=== PATIENT | female | born 1940 | race Caucasian/White ===

== ENCOUNTER 2019-02-26 20:53 | Inpatient (IN) ==
[2019-02-26] MEDS ORDERED: Morphine Sulfate 2 MG/ML SYRINGE IVP ONE (21:57)
[2019-02-26 22:49] LABS: Basophils % 0.5 %; Eosinophils # 0.3 K/mcL (0.0-0.6); Hematocrit 40.9 % (35.3-44.9); Hemoglobin 13.7 g/dL (11.5-15.4); Immature Granulocytes % 0.4 % (0-4); Lymphocytes # 2.1 K/mcL (0.6-4.6); Lymphocytes % 25.1 %; Mean Corpuscular HGB Conc 33.5 g/dL (31.6-35.5); Mean Corpuscular Hemoglobin 30.4 pg (28.0-33.3); Mean Corpuscular Volume 90.9 fL (83.0-100.0); Mean Platelet Volume 9.7 fL (9.4-12.4); Monocytes # 0.3 K/mcL (0.0-1.3); Monocytes % 3.8 %; Neutrophils # 5.4 K/mcL (1.6-8.9); Platelet Count 163 K/mcL (140-400); Segmented Neutrophils % 66.2 %; White Blood Count 8.2 K/mcL (4.3-11.1)
[2019-02-26] MEDS ORDERED: Ondansetron 4 MG/2 ML VIAL IVP ONE (22:49)
[2019-02-26 22:58] LABS: INR 1.1; Prothrombin Time 12.8 Seconds (9.4-12.1)
[2019-02-26 23:12] LABS: Alanine Aminotransferase 11 Units/L (7-52); Albumin/Globulin Ratio 1.2 (1.1-2.2); Alkaline Phosphatase 83 Units/L (34-104); Aspartate Amino Transferase 19 Units/L (13-39); BUN/Creatinine Ratio 16 (6-26); Bilirubin,Total 0.8 mg/dL (0.3-1.0); Blood Urea Nitrogen 11 mg/dL (8-23); Calcium 9.7 mg/dL (8.6-10.3); Carbon Dioxide 27 mEq/L (23-29); Chloride 94 mEq/L (98-107); Globulin 3.4 g/dL (2.4-3.5); Glucose 142 mg/dL (70-105); Osmolality,Calculated 270 (280-300); Potassium 4.2 mEq/L (3.5-5.1); Sodium 129 mEq/L (136-145); Total Protein 7.4 g/dL (6.4-8.9); eGFR For African Americans > 60 (> 60); eGFR For Non-African Americans > 60 (> 60)
[2019-02-27] MEDS ORDERED: 0.9 % Sodium Chloride 1,000 ML IV ONE (00:18)
[2019-02-27] MEDS ORDERED: Naloxone 0.4 MG/ML INJ IVP PRN ×2 (01:21→18:59)
[2019-02-27] MEDS ORDERED: Ondansetron 4 MG/2 ML VIAL IVP PRN ×2 (01:21→18:59)
[2019-02-27] MEDS ORDERED: Nitroglycerin 0.4 MG TAB.SUBL SL PRN ×2 (01:28→18:59)
[2019-02-27] MEDS ORDERED: 0.9 % Sodium Chloride 1,000 ML IVC SCH (01:30)
[2019-02-27] MEDS ORDERED: Melatonin 3 MG TABLET PO ONE (02:56)
[2019-02-27] MEDS: Albuterol 2.5 MG/3 ML NEBULIZER IH SCH ×6 (04:56→23:18)
[2019-02-27 05:58] LABS: Hematocrit 36.7 % (35.3-44.9); Hemoglobin 12.5 g/dL (11.5-15.4); Mean Corpuscular HGB Conc 34.1 g/dL (31.6-35.5); Mean Corpuscular Hemoglobin 30.6 pg (28.0-33.3); Mean Corpuscular Volume 89.7 fL (83.0-100.0); Mean Platelet Volume 10.2 fL (9.4-12.4); Platelet Count 163 K/mcL (140-400); Red Blood Count 4.09 M/mcL (3.82-4.97); Red Cell Distribution Width 12.1 % (11.5-14.5); White Blood Count 8.6 K/mcL (4.3-11.1)
[2019-02-27 06:25] LABS: BUN/Creatinine Ratio 20 (6-26); Blood Urea Nitrogen 12 mg/dL (8-23); Calcium 9.3 mg/dL (8.6-10.3); Carbon Dioxide 24 mEq/L (23-29); Chloride 95 mEq/L (98-107); Glucose 195 mg/dL (70-105); Osmolality,Calculated 275 (280-300); Potassium 4.1 mEq/L (3.5-5.1); Sodium 130 mEq/L (136-145); eGFR For African Americans > 60 (> 60); eGFR For Non-African Americans > 60 (> 60)
[2019-02-27] MEDS ORDERED: D5% in Water 1,000 ML IVC PRN ×2 (07:33→18:59)
[2019-02-27] MEDS ORDERED: Dextrose Gel 15 GM/37.5 ML TUBE PO PRN ×4 (07:33→18:59)
[2019-02-27] MEDS ORDERED: *HR* Dextrose 50 % in Water (Syg) 50 ML SYRINGE IVP PRN ×2 (07:33→18:59)
[2019-02-27] MEDS ORDERED: Nystatin Cream 15 GM TUBE TP SCH (09:00)
[2019-02-27] MEDS: Insulin LISPRO 300 UNITS/3 ML VIAL SQ SCH ×2 (13:12→20:07)
[2019-02-27] MEDS ORDERED: *HR* HYDROcodone/Acet 5/325 mg TABLET PO PRN ×2 (15:01→18:59)
[2019-02-27] MEDS ORDERED: *HR* FentaNYL (PF) 100 MCG/2 ML VIAL ONE ×2 (15:35→16:54)
[2019-02-27] MEDS ORDERED: *HR* Propofol 200 MG/20 ML VIAL IVP ONE (15:36)
[2019-02-27] MEDS ORDERED: Lidocaine -MPF 2% 2 ML VIAL ONE (15:37)
[2019-02-27] MEDS ORDERED: *HR* Succinylcholine 200 MG/10 ML VIAL IVP ONE (15:38)
[2019-02-27] MEDS ORDERED: Lidocaine HCL 4 ML Topical Solution (Laryng-O-Jet Kit Sterile Pak) TP ONE (15:38)
[2019-02-27] MEDS ORDERED: Clindamycin 900 MG/50 ML 900 MG/50 ML IV.SOLN IVPB ONE (15:43)
[2019-02-27] MEDS ORDERED: *HR* Promethazine 25 MG/ML VIAL IVP PRN ×2 (15:46→18:59)
[2019-02-27] MEDS ORDERED: Acetaminophen IV 1,000 MG/100 ML INFUS..BTL IVPB ONE ×2 (15:46→18:59)
[2019-02-27] MEDS ORDERED: *HR* FentaNYL (PF) 100 MCG/2 ML VIAL IVP PRN ×2 (15:46→18:59)
[2019-02-27] MEDS ORDERED: *HR* Meperidine 25 MG/ML SYRINGE IVP PRN ×2 (15:46→18:59)
[2019-02-27] MEDS ORDERED: *HR* OxyCODONE Immed Rel 5 MG TABLET PO PRN (15:46)
[2019-02-27] MEDS ORDERED: Acetaminophen IV 1,000 MG/100 ML INFUS..BTL ONE (16:17)
[2019-02-27] MEDS ORDERED: *HR* PHENYLEPHRINE 1,000 MCG/10 ML SYRINGE IVP ONE (16:40)
[2019-02-27] MEDS ORDERED: Dexamethasone 4 MG/ML VIAL ONE (16:40)
[2019-02-27] MEDS ORDERED: Ondansetron 4 MG/2 ML VIAL ONE (16:40)
[2019-02-27] MEDS: *HR* HYDROmorphone (PF) 1 MG/ML SYRINGE IVP PRN ×2 (17:49→17:55)
[2019-02-27] MEDS: Magnesium Oxide 400 MG TABLET PO SCH (20:34)
[2019-02-27] MEDS: Lactobacillus 1 EACH CAP.SPRINK PO SCH (20:34)
[2019-02-27] MEDS ORDERED: Lactobacillus 1 EACH CAP.SPRINK PO SCH (21:00)
[2019-02-27] MEDS ORDERED: Magnesium Oxide 400 MG TABLET PO SCH (21:00)
[2019-02-27] MEDS ORDERED: (Colestipol Hcl [Colestid] 2 GM) PO SCH (21:00)
[2019-02-27] MEDS: Nystatin Cream 15 GM TUBE TP SCH (21:58)
[2019-02-27] MEDS: (Colestipol Hcl [Colestid] 2 GM) PO SCH (22:02)
[2019-02-28] MEDS: Clindamycin 900 MG/50 ML 900 MG/50 ML IV.SOLN IVPB SCH ×2 (00:32→08:20)
[2019-02-28] MEDS: Insulin LISPRO 300 UNITS/3 ML VIAL SQ SCH ×4 (00:42→18:56)
[2019-02-28] MEDS: Albuterol 2.5 MG/3 ML NEBULIZER IH SCH ×5 (04:35→20:42)
[2019-02-28] MEDS: Loratadine 10 MG TABLET PO SCH (08:09)
[2019-02-28] MEDS: Nystatin Cream 15 GM TUBE TP SCH ×2 (08:09→21:33)
[2019-02-28] MEDS: Aspirin 325 MG TABLET PO SCH (08:09)
[2019-02-28] MEDS: Magnesium Oxide 400 MG TABLET PO SCH ×3 (08:09→19:54)
[2019-02-28] MEDS: Lactobacillus 1 EACH CAP.SPRINK PO SCH ×2 (08:09→19:53)
[2019-02-28] MEDS: (Colestipol Hcl [Colestid] 2 GM) PO SCH ×2 (08:10→20:00)
[2019-02-28] MEDS ORDERED: Aspirin 325 MG TABLET PO SCH (09:00)
[2019-02-28] MEDS ORDERED: Loratadine 10 MG TABLET PO SCH (09:00)
[2019-02-28] MEDS ORDERED: Ringers Solution, Lactated 1,000 ML IVC ONE (12:34)
[2019-02-28] MEDS ORDERED: Ringers Solution, Lactated 1,000 ML ONE (12:43)
[2019-02-28] MEDS: Ketorolac 15 MG/ML VIAL IVP SCH ×2 (16:01→20:04)
[2019-02-28] MEDS: Aspirin Enteric Coated 81 MG Tablet PO SCH (16:08)
[2019-03-01] MEDS: Albuterol 2.5 MG/3 ML NEBULIZER IH SCH ×6 (00:11→20:16)
[2019-03-01 01:57] LABS: Hematocrit 24.5 % (35.3-44.9)
[2019-03-01 01:58] LABS: Hemoglobin 8.1 g/dL (11.5-15.4)
[2019-03-01 02:16] LABS: Calcium 7.9 mg/dL (8.6-10.3); Potassium 4.1 mEq/L (3.5-5.1)
[2019-03-01] MEDS: Ketorolac 15 MG/ML VIAL IVP SCH (04:09)
[2019-03-01 04:56] LABS: Hematocrit 24.8 % (35.3-44.9); Hemoglobin 8.4 g/dL (11.5-15.4); Mean Corpuscular HGB Conc 33.9 g/dL (31.6-35.5); Mean Corpuscular Hemoglobin 30.9 pg (28.0-33.3); Mean Corpuscular Volume 91.2 fL (83.0-100.0); Platelet Count 137 K/mcL (140-400); Red Blood Count 2.72 M/mcL (3.82-4.97); White Blood Count 8.9 K/mcL (4.3-11.1)
[2019-03-01] MEDS: Magnesium Oxide 400 MG TABLET PO SCH ×3 (07:56→21:30)
[2019-03-01] MEDS: Aspirin Enteric Coated 81 MG Tablet PO SCH (07:56)
[2019-03-01] MEDS: Aspirin 325 MG TABLET PO SCH (07:57)
[2019-03-01] MEDS: Loratadine 10 MG TABLET PO SCH (07:58)
[2019-03-01] MEDS: Insulin LISPRO 300 UNITS/3 ML VIAL SQ SCH ×4 (07:58→21:30)
[2019-03-01] MEDS: Lactobacillus 1 EACH CAP.SPRINK PO SCH ×2 (07:58→21:29)
[2019-03-01] MEDS: (Colestipol Hcl [Colestid] 2 GM) PO SCH ×3 (08:00→21:38)
[2019-03-01] MEDS: Nystatin Cream 15 GM TUBE TP SCH ×2 (10:34→21:31)
[2019-03-01 15:12] LABS: Hemoglobin 9.2 g/dL (11.5-15.4)
[2019-03-01] MEDS ORDERED: Albuterol 2.5 MG/3 ML NEBULIZER IH PRN (20:37)
[2019-03-02] MEDS ORDERED: *HR* HYDROcodone/Acet 5/325 mg TABLET PO ONE (00:57)
[2019-03-02 01:41] LABS: Hematocrit 22.7 % (35.3-44.9); Hemoglobin 7.7 g/dL (11.5-15.4); Mean Corpuscular HGB Conc 33.9 g/dL (31.6-35.5); Mean Corpuscular Hemoglobin 31.4 pg (28.0-33.3); Mean Corpuscular Volume 92.7 fL (83.0-100.0); Mean Platelet Volume 11.3 fL (9.4-12.4); Platelet Count 115 K/mcL (140-400); Red Blood Count 2.45 M/mcL (3.82-4.97); Red Cell Distribution Width 12.7 % (11.5-14.5); White Blood Count 6.4 K/mcL (4.3-11.1)
[2019-03-02 02:01] LABS: Blood Urea Nitrogen 30 mg/dL (8-23); Carbon Dioxide 25 mEq/L (23-29); Chloride 95 mEq/L (98-107); Potassium 4.6 mEq/L (3.5-5.1); Sodium 126 mEq/L (136-145)
[2019-03-02 02:02] LABS: BUN/Creatinine Ratio 32 (6-26); Glucose 158 mg/dL (70-105); Osmolality,Calculated 271 (280-300); eGFR For African Americans > 60 (> 60); eGFR For Non-African Americans 57 (> 60)
[2019-03-02] MEDS ORDERED: 0.9 % Sodium Chloride 250 ML IVC SCH (07:00)
[2019-03-02] MEDS ORDERED: Furosemide 20 MG/2 ML VIAL IVP ONE (07:00)
[2019-03-02] MEDS: Loratadine 10 MG TABLET PO SCH (07:50)
[2019-03-02] MEDS: Magnesium Oxide 400 MG TABLET PO SCH ×3 (07:51→21:03)
[2019-03-02] MEDS: Lactobacillus 1 EACH CAP.SPRINK PO SCH ×2 (07:51→21:03)
[2019-03-02] MEDS: (Colestipol Hcl [Colestid] 2 GM) PO SCH ×2 (07:51→21:10)
[2019-03-02] MEDS: Nystatin Cream 15 GM TUBE TP SCH ×2 (07:52→21:09)
[2019-03-02] MEDS: Insulin LISPRO 300 UNITS/3 ML VIAL SQ SCH ×4 (07:52→20:55)
[2019-03-02 16:51] LABS: Hematocrit 27.7 % (35.3-44.9); Hemoglobin 9.5 g/dL (11.5-15.4)
[2019-03-03] MEDS ORDERED: *HR* OxyCODONE Immed Rel 5 MG TABLET PO ONE (02:07)
[2019-03-03] MEDS: Insulin LISPRO 300 UNITS/3 ML VIAL SQ SCH ×2 (08:47→12:42)
[2019-03-03] MEDS: (Colestipol Hcl [Colestid] 2 GM) PO SCH (08:48)
[2019-03-03] MEDS: Loratadine 10 MG TABLET PO SCH (08:48)
[2019-03-03] MEDS: Nystatin Cream 15 GM TUBE TP SCH (08:48)
[2019-03-03] MEDS: Lactobacillus 1 EACH CAP.SPRINK PO SCH (08:48)
[2019-03-03] MEDS: Magnesium Oxide 400 MG TABLET PO SCH ×2 (08:48→12:41)
[2019-03-03 12:24] VITALS: BP 161/91
== END 2019-03-03 16:40 | DRG 481 ==
LOC: EMEROOARM 20:53 → 3NENU 20:53 → SUATTDRO 23:12 → 3NENU 02-27 00:14 → SUATTDRO 02-27 14:57
PROVIDERS: ADMIT Internal Medicine; ATTEND Internal Medicine